=== PATIENT | male | born 1990 | race Caucasian/White ===

== ENCOUNTER → 2020-10-01 12:22 | Outpatient (BNVA) | payer MEDICAID, SELFPAY | PROVIDERS: Family Provider Family Medicine; PCP Family Medicine; Visit Provider Family Medicine | DX: I10 Essential (primary) hypertension (principal); Z03.89 Encounter for observation for other suspected diseases and conditions ruled out; Z79.899 Other long term (current) drug therapy | CPT/HCPCS: 80053; 80061; 82306; 82607; 83036; 84443 ==

== ENCOUNTER → 2021-08-26 12:36 | Outpatient (BNVA) | payer MEDICAID, SELFPAY | PROVIDERS: Family Provider Family Medicine; PCP Family Medicine; Visit Provider Registered Nurse | DX: Z79.899 Other long term (current) drug therapy (principal) | CPT/HCPCS: 80053; 80061; 82306; 82607; 83036; 84443 ==

== ENCOUNTER → 2022-08-23 13:04 | Outpatient (BNVA) | payer MEDICAID, SELFPAY | PROVIDERS: Family Provider Family Medicine; PCP Family Medicine; Visit Provider Family Medicine | DX: E55.9 Vitamin D deficiency, unspecified (principal); R53.83 Other fatigue; E53.8 Deficiency of other specified B group vitamins; I10 Essential (primary) hypertension | CPT/HCPCS: 80053; 80061; 82607; 82652 ==

== ENCOUNTER → 2022-09-30 09:22 | Outpatient (BNVA) | payer MEDICAID, SELFPAY | PROVIDERS: Family Provider Family Medicine; PCP Family Medicine; Visit Provider Family Medicine | DX: N17.9 Acute kidney failure, unspecified (principal); I10 Essential (primary) hypertension | CPT/HCPCS: 80048 ==

== ENCOUNTER → 2023-03-08 09:04 | Outpatient (BNVA) | payer MEDICAID, SELFPAY | PROVIDERS: Family Provider Family Medicine; PCP Family Medicine; Visit Provider Family Medicine | DX: I10 Essential (primary) hypertension (principal); E55.9 Vitamin D deficiency, unspecified; E53.8 Deficiency of other specified B group vitamins; E78.5 Hyperlipidemia, unspecified; Z68.43 Body mass index [BMI] 50.0-59.9, adult; E78.2 Mixed hyperlipidemia; G62.9 Polyneuropathy, unspecified; F41.0 Panic disorder [episodic paroxysmal anxiety] | CPT/HCPCS: 80048; 80061; 82607; 82652 ==

== ENCOUNTER → 2024-03-29 14:29 | Outpatient (BNVA) | payer OTHER, SELFPAY | PROVIDERS: Family Provider Family Medicine; PCP Family Medicine; Visit Provider Psychiatry & Neurology Psychiatry | DX: Z79.899 Other long term (current) drug therapy (principal) | CPT/HCPCS: 80053; 80061; 83036; 84443; 85025 ==

== ENCOUNTER 2024-06-14 08:54 | Outpatient (CLI) | payer MEDICAID, SELFPAY ==
[2024-04-05 16:39] VITALS: BP 148/96; BMI 52.2
--- NOTE | 2024-06-14 08:45 | US_ITS ---
WS: [id number] Complete ABDOMINAL ULTRASOUND HISTORY: R10.11 - Right upper quadrant pain COMPARISON: None available. Liver: 18.7 cm in length. Moderately enlarged liver with coarse echotexture. No mass identified but t he entire liver is not well visualized. Portal Vein: Normal hepatopetal flow with monophasic waveform. Gallbladder: Normally distended. There is a large amount of shadowing near the neck of the gallbladde r consistent with stones. No pericholecystic fluid. CBD: 0.4 cm Pancreas: Obscured completely. Right kidney: 10.4 cm x 5.7 x 6.6 cm. Cortex:1.4 cm. Cyst with through transmission mid kidney measures 2.5 x 3.1 x 2.8 cm. No solid mass or hydronephrosi s. Left kidney: 10.7 cm x 4.7 cm x 6.4 cm. Cortex: 1.4 cm. Normal size and echogenicity. No hydronephrosis or mass. Spleen: 12.3 cm. Normal size and echogenicity. Aorta and IVC: Unremarkable abdominal aorta and IVC. US/US abdomen complete* [id number] Impression: 1. Cholelithiasis without evidence for acute cholecystitis. 2. Poorly visualized liver due to body habitus. Liver is moderately enlarged. No mass identified. Suspect hepatic steatosis. 3. Obscured pancreas. 4. Simple cyst mid RIGHT kidney, 2.5 x 3.1 x 2.8 cm.
--- NOTE | 2024-06-14 09:54 | XR_ITS ---
WS: [id number] XR knee LT 3V* [id number] REASON FOR EXAM: M25.562 - Pain in left knee FINDINGS: No fracture or focal bone lesion. Joint effusion. Mild to moderate narrowing of the medial knee joint space with moderate subchondral sclerosis and sig nificant osteophytosis. Mild medial shift of the femur. Mild narrowing of the lateral knee joint space with mild subchondral sclerosis and moderate osteophyt osis. Moderate narrowing of the patellofemoral joint space with moderate subchondral sclerosis and marginal osteophytosis. XR/XR knee LT 3V* [id number] IMPRESSION: Moderate to significant osteoarthritis of the left knee as above.
--- NOTE | 2024-06-14 09:54 | XR_ITS ---
WS: [email or web address] XR knee RT 3V* [id number] REASON FOR EXAM: M25.561 - Pain in right knee FINDINGS: No fracture or focal bone lesion. Patellofemoral and lateral joint space are intact and well preserved. Minimal narrowing of the medial knee joint space. Mild subchondral sclerosis in the medial knee joint space. XR/XR knee RT 3V* [id number] IMPRESSION: Minimal osteoarthritis as above.
== END 2024-06-14 08:55 | disposition home or self-care (01) ==
LOC: RAD 08:55
PROVIDERS: Family Provider Family Medicine; PCP Family Medicine; Visit Provider Family Medicine
DX: M17.12 Unilateral primary osteoarthritis, left knee (principal); M25.762 Osteophyte, left knee; K80.20 Calculus of gallbladder without cholecystitis without obstruction; R16.0 Hepatomegaly, not elsewhere classified; N28.1 Cyst of kidney, acquired; M25.561 Pain in right knee
CPT/HCPCS: 73562; 76700

== ENCOUNTER → 2024-07-02 14:03 | Outpatient (BNVA) | payer MEDICAID, SELFPAY ==
[2024-04-05 16:39] VITALS: BP 148/96; BMI 52.2
== END ==
PROVIDERS: Family Provider Family Medicine; PCP Family Medicine; Visit Provider Surgery
DX: K80.20 Calculus of gallbladder without cholecystitis without obstruction (principal)
CPT/HCPCS: 99204

== ENCOUNTER 2024-08-07 05:43 | Day surgery (SDC) | payer MEDICAID, SELFPAY ==
[2024-04-05 16:39] VITALS: BP 148/96; BMI 52.2
[2024-08-07] VITALS (10 sets, daily range): BP systolic 94–163; BP diastolic 50–75; PULSE 75–83; RESP 18; TEMP 36.2–36.7; O2SAT 92–98; BMI 51.5
[2024-08-07] MEDS: scopolamine 1 mg PATCH 1 PATCH TRANSDERMA (06:22)
[2024-08-07] MEDS: sodium chloride 0.9% 1,000 ML 30 ML IV (06:23)
--- NOTE | 2024-08-07 06:37 | ANES.PREANE2 ---
Pre-Anesthetic Assessment Height/Weight: Height 1.8 m Weight 167.829 kg Temp Pulse Resp BP Pulse Ox O2 Del Method 98.1 F 75 18 163/61 97 Room Air 08/07/24 06:08 08/07/24 06:08 08/07/24 06:08 08/07/24 06:22 08/07/24 06:08 08/07/24 06:09 Operation Date: 08/07/24 07:00 Proposed Procedures p Laparoscopic Cholecystectomy 37293, K80.20(Not Applicable) - Onur Monae DO Familial anesthetic complications: None Was Beta Romeo taken within 24 hours: N/A Was Clonidine taken within 24 hours: N/A Last intake: Intake Last Liquid Date 08/06/24 Last Liquid Time 21:00 Last Solid Date 08/06/24 Last Solid Time 20:00 Social Tobacco and No alcohol Exam alert, oriented x 3, clear to auscultation bilaterally and regular rate & rhythm Airway Mallampati: Class IV CV/HEM Hypertension GI Gastroesophageal Reflux Disease Metabolic Morbid Obesity Anesthetic Plan ASA status: 3 Anesthesia: General Risk of > 500 ml blood loss (7ml/kg in children): No Medications/Allergies Home Medications Medication Instructions Recorded Confirmed Last Taken Type ibuprofen 200 mg tablet 200 mg PO DAILY PRN Pain 07/12/19 08/06/24 Unknown History mecobalamin (vitamin B12) 5,000 5,000 mcg PO DAILY 90 days #90 tabs 03/08/23 08/06/24 Unknown Rx mcg disintegrating tablet cholecalciferol (vitamin D3) 1,250 1,250 mcg PO .weekly 90 days #13 06/16/23 08/06/24 08/01/24 Rx mcg (50,000 unit) capsule caps atorvastatin 10 mg tablet 10 mg PO .at bedtime 90 days #90 12/15/23 08/06/24 08/06/24 Rx tabs amlodipine 10 mg tablet 10 mg PO DAILY 90 days #90 tabs 05/30/24 08/06/24 08/07/24 Rx lisinopril 20 2 tab PO DAILY 90 days #180 tabs 05/30/24 08/06/24 08/06/24 Rx mg-hydrochlorothiazide 12.5 mg tablet metronidazole 0.75 % topical cream 1 applic topical DAILY #45 grams 06/19/24 08/06/24 08/04/24 Rx pantoprazole 40 mg tablet,delayed 40 mg PO DAILY 90 days #90 tabs 06/19/24 08/06/24 08/05/24 Rx release clonazepam 1 mg tablet 1 mg PO TID PRN anxiety 30 days 06/29/24 08/06/24 08/07/24 Rx #80 tabs desvenlafaxine succinate 100 mg 100 mg PO DAILY #30 caps 06/29/24 08/06/24 08/06/24 Rx tablet,extended release 24 hr cariprazine 6 mg capsule (Vraylar) 6 mg PO DAILY 08/06/24 08/06/24 08/06/24 History furosemide 20 mg tablet 20 mg PO PRN PRN Edema 08/06/24 08/06/24 08/06/24 History propranolol 40 mg tablet 40 mg PO TID 08/06/24 08/06/24 08/07/24 History Allergies Allergy/AdvReac Type Severity Reaction Status Date / Time No Known Allergies Allergy Verified 07/02/24 14:40 Current Medications Generic Name Dose Route Start Last Admin Trade Name Freq PRN Reason Stop Dose Admin Sodium Chloride 1,000 mls @ 30 mls/hr 08/07/24 06:00 08/07/24 06:23 Sodium Chloride 0.9% IV 08/08/24 05:59 30 mls/hr .Q24H HAWA Administration PFSH Anesthesia Medical History Borderline personality disorder Chronic use of benzodiazepine for therapeutic purpose Psychiatric care Hypertension Chronic pain of right lower extremity Superficial vein thrombosis Morbid obesity Allergic rhinitis Tobacco abuse Surgical History H/O tympanostomy Hx of tonsillectomy History of skin graft Left Arm Family History Family/Other CAD (coronary artery disease) Uncle Mother Anxiety disorder Social History Smoking and tobacco/nicotine status: current every day tobacco/nicotine user (Cigars and marijuana) cigars Cigar details: smokes one occassionally Substance/Drug Use: current Substance/Drug use frequency: daily Current gender identity: Male Data Anesthesia Cardiac Studies: No Data to Display
--- NOTE | 2024-08-07 06:57 | PM.HP ---
Providers/Chief Complaint Primary Care Provider: Lenora Adan MD Chief Complaint: K80.20 History of Present Illness Tom Armenta is a 33 year old male Review of Systems General: Reports: 10 or more systems reviewed and unremarkable except in HPI and below Medications/Allergies Home Medications Medication Instructions Recorded Confirmed Last Taken Type ibuprofen 200 mg tablet 200 mg PO DAILY PRN Pain 07/12/19 08/06/24 Unknown History mecobalamin (vitamin B12) 5,000 5,000 mcg PO DAILY 90 days #90 tabs 03/08/23 08/06/24 Unknown Rx mcg disintegrating tablet cholecalciferol (vitamin D3) 1,250 1,250 mcg PO .weekly 90 days #13 06/16/23 08/06/24 08/01/24 Rx mcg (50,000 unit) capsule caps atorvastatin 10 mg tablet 10 mg PO .at bedtime 90 days #90 12/15/23 08/06/24 08/06/24 Rx tabs amlodipine 10 mg tablet 10 mg PO DAILY 90 days #90 tabs 05/30/24 08/06/24 08/07/24 Rx lisinopril 20 2 tab PO DAILY 90 days #180 tabs 05/30/24 08/06/24 08/06/24 Rx mg-hydrochlorothiazide 12.5 mg tablet metronidazole 0.75 % topical cream 1 applic topical DAILY #45 grams 06/19/24 08/06/24 08/04/24 Rx pantoprazole 40 mg tablet,delayed 40 mg PO DAILY 90 days #90 tabs 06/19/24 08/06/24 08/05/24 Rx release clonazepam 1 mg tablet 1 mg PO TID PRN anxiety 30 days 06/29/24 08/06/24 08/07/24 Rx #80 tabs desvenlafaxine succinate 100 mg 100 mg PO DAILY #30 caps 06/29/24 08/06/24 08/06/24 Rx tablet,extended release 24 hr cariprazine 6 mg capsule (Vraylar) 6 mg PO DAILY 08/06/24 08/06/24 08/06/24 History furosemide 20 mg tablet 20 mg PO PRN PRN Edema 08/06/24 08/06/24 08/06/24 History propranolol 40 mg tablet 40 mg PO TID 08/06/24 08/06/24 08/07/24 History Allergies Allergy/AdvReac Type Severity Reaction Status Date / Time No Known Allergies Allergy Verified 07/02/24 14:40 PFSH Acute PFSH: Medical History Borderline personality disorder Chronic use of benzodiazepine for therapeutic purpose Psychiatric care Hypertension Chronic pain of right lower extremity Superficial vein thrombosis Morbid obesity Allergic rhinitis Tobacco abuse Surgical History H/O tympanostomy Hx of tonsillectomy History of skin graft Left Arm Family History Family/Other CAD (coronary artery disease) Uncle Mother Anxiety disorder Social History Smoking and tobacco/nicotine status: current every day tobacco/nicotine user (Cigars and marijuana) cigars Cigar details: smokes one occassionally Substance/Drug Use: current Substance/Drug use frequency: daily Current gender identity: Male Vitals/I&O/Wt Last Vital Signs Temp 98.1 F 08/07/24 06:08 Pulse 75 08/07/24 06:08 Resp 18 08/07/24 06:08 BP 163/61 08/07/24 06:22 Pulse Ox 97 08/07/24 06:08 O2 Del Method Room Air 08/07/24 06:09 Weight last 48 hrs Weight 370 lb A&P Assessment and plan (1) Symptomatic cholelithiasis: Plan Laparoscopic cholecystectomy Patient has requested a liver biopsy. If liver looks irregular, I will perform a wedge liver biopsy which carries the same risks as cholecystectomy including bile leak and bleeding along with infection Attestations Medical Necessity Statement*: Home Coding Level of Care Code Acute Code for Chg Fwd Diagnoses Symptomatic cholelithiasis K80.20
[2024-08-07] MEDS: ceFAZolin 3,000 MG in sodium chloride 0.9% (plus) 100 ML 200 MG IV (07:05)
[2024-08-07] MEDS: lidocaine-epi 2% PF 1:200,000 20 mL SDV XX (07:26)
--- NOTE | 2024-08-07 07:57 | P.OP_ITS ---
Operative Report Date of procedure: August 07, 2024 Surgeon: Onur Mnoae DO Brief History: This is a very pleasant 33-year-old gentleman who presented my office with abdominal pain. He was diagnosed with symptomatic cholelithiasis. Laparoscopic cholecystectomy was indicated. The risks and benefits were explained and documented. Procedure: Preoperative diagnosis: Symptomatic cholelithiasis Postoperative diagnosis: Same Procedure performed: Laparoscopic cholecystectomy Surgeon: Dr. Onur Monae DO Estimated blood loss: 5 mL Specimens: Gallbladder to pathology Complications: None apparent Description of procedure: Patient was wheeled into the operative room and placed on the OR table in a supine position. Abdomen was inspected prepped and draped in usual sterile fashion. Time-out was performed and all present were in agreement. A 15 blade scalp was used to make a stab incision in the left upper quadrant and intra- abdominal insufflation was achieved using a Veress needle. After localizing the tissue incisions were made and a 5 millimeter trocar was placed into the umbilicus as well as 2 in the right upper quadrant. A 12 millimeter trocar was placed in the epigastrium. Gallbladder was grasped and elevated. The triangle of Calot was carefully dissected using blunt dissection and electrocautery until the triangle of Calot clearly identified. The cystic duct was clipped proximally and double clipped distally. The duct was then ligated proximally. The cystic artery was doubly clipped and ligated. The gallbladder was then removed from the liver bed using electrocautery. The gallbladder was removed from the abdomen using an Endo-Catch bag through the epigastric incision. Due to a large stone, the epigastric incision had to be extended. The liver bed was inspected and no bleeding was seen. The abdomen was irrigated and suctioned. All ports removed. Skin was washed and dried. Incisions were closed with 4-0 Monocryl in a subcuticular interrupted fashion. Skin glue was applied. Patient tolerated the procedure well.
[2024-08-07] MEDS: fentaNYL 50 mcg/mL INJ 2mL IVP (08:20)
[2024-08-07] MEDS: HYDROcodone-acetaminophen 7.5-325 mg Tablet 1 TAB PO (09:07)
--- NOTE | 2024-08-07 09:20 | ANE.PACU2 ---
Inpatient post-anesthesia follow up: Airway intact: Yes Vital signs: Temperature 97.2 F Pulse Rate 76 Respiratory Rate 18 Blood Pressure 116/62 Pulse Oximetry 94 Oxygen Delivery Me thod Room Air Oxygen Flow Rate 10 Fraction of Inspir ed Oxygen Hydration adequate: Yes Nausea and vomiting: No Pain level: 1 Mental status: Baseline
== END 2024-08-07 09:29 | disposition home or self-care (01) ==
PROVIDERS: PCP Family Medicine; Visit Provider Surgery
PROC: 0FT44ZZ Resection of Gallbladder, Percutaneous Endoscopic Approach (ICD-10-PCS; CPT 47562; principal; 2024-08-07 07:00)
DX: K80.10 Calculus of gallbladder with chronic cholecystitis without obstruction (principal); I10 Essential (primary) hypertension; E66.01 Morbid (severe) obesity due to excess calories; F17.290 Nicotine dependence, other tobacco product, uncomplicated; Z79.899 Other long term (current) drug therapy
CPT/HCPCS: 47562; 88304; A4216; J0690; J2250; J2371; J2704; J3010; J7030

== ENCOUNTER → 2024-08-20 08:26 | Outpatient (BNVA) | payer MEDICAID, SELFPAY ==
[2024-04-05 16:39] VITALS: BP 148/96; BMI 52.2
== END ==
PROVIDERS: PCP Family Medicine; Visit Provider Surgery
DX: Z98.890 Other specified postprocedural states (principal); Z90.49 Acquired absence of other specified parts of digestive tract
CPT/HCPCS: 99024

== ENCOUNTER → 2024-11-21 09:40 | Outpatient (BNVA) | payer MEDICAID, SELFPAY ==
[2024-04-05 16:39] VITALS: BP 148/96; BMI 52.2
== END ==
PROVIDERS: Family Provider Family Medicine; PCP Family Medicine; Visit Provider Family Medicine
DX: I10 Essential (primary) hypertension (principal); Z13.1 Encounter for screening for diabetes mellitus; R73.9 Hyperglycemia, unspecified
CPT/HCPCS: 80053; 83036

== ENCOUNTER 2025-01-08 08:30 | Outpatient (CLI) | payer MEDICAID, SELFPAY ==
[2024-04-05 16:39] VITALS: BP 148/96; BMI 52.2
--- NOTE | 2025-01-08 09:30 | MR_ITS ---
WS: [id number] MRI LEFT KNEE HISTORY: M25.562 - Pain in left knee COMPARISON: Radiographs 06/14/2024 Anterior cruciate ligament: Mild mucoid degeneration in the ACL. No full- thickness tear. Posterior cruciate ligament: Intact. Medial collateral ligament: MCL is being displaced from the joint line by large marginal osteophytes and fluid. Fluid surrounding the deep portion of the MCL. Posterior lateral corner structures: Intact. Medial menisci: Anterior horn is extruded from the joint space. Posterior horn small caliber. Slight truncation of the posterior superior meniscal surface. Lateral meniscus: Truncated free edge of the posterior horn. Fraying along the surfaces of the meniscus. Extensor mechanism: Distal quadriceps tendon and patellar tendons are intact. Fluid and soft tissue: Small suprapatellar joint effusion. Intra-articular bodies noted within the joint effusion. Diffuse soft tissue edema surrounding the knee. No Urena's cyst. Osseous and articular structures: Patellofemoral compartment: Lateral subluxation of the patella. Loss of cartilage over the patellar eminence. Thinning of the cartilage over the medial and lateral facets. Moderate narrowing of the lateral patella femoral articulation. Small amount of marrow edema at the patellar eminence. Medial compartment: Marked narrowing the medial compartment with loss of cartilage. Small amount of edema with large marginal osteophytes. Lateral compartment: Marked narrowing with diffuse chondromalacia involving the cartilage of the femoral condyle and tibial plateau. No marrow edema or fracture. MR/MR knee LT wo con* [id number] IMPRESSION: 1. Severe tricompartment osteoarthritis with joint space narrowing, loss of ca rtilage and scattered marrow edema. 2. Partial lateral subluxation of the patella with loss of cartilage at the pa tellar eminence. 3. Moderate size joint effusion with intra-articular bodies. 4. Diffuse soft tissue edema. 5. Mild mucoid degeneration of the ACL. 6. MCL is being displaced from the joint line by large osteophytes. 7. Extruded anterior horn medial meniscus and small caliber posterior horn. 8. Mild truncated free edge posterior horn lateral meniscus.
== END 2025-01-08 08:31 | disposition home or self-care (01) ==
LOC: RAD 08:31
PROVIDERS: PCP Family Medicine; Visit Provider Family Medicine
DX: M17.12 Unilateral primary osteoarthritis, left knee (principal); R93.6 Abnormal findings on diagnostic imaging of limbs; S83.012A Lateral subluxation of left patella, initial encounter; X58.XXXA Exposure to other specified factors, initial encounter; M25.462 Effusion, left knee; M25.762 Osteophyte, left knee; M94.262 Chondromalacia, left knee
CPT/HCPCS: 73721

== ENCOUNTER → 2025-01-15 07:46 | Outpatient (BNVA) | payer MEDICAID, SELFPAY ==
[2024-04-05 16:39] VITALS: BP 148/96; BMI 52.2
== END ==
PROVIDERS: PCP Family Medicine; Visit Provider Orthopaedic Surgery
DX: M17.12 Unilateral primary osteoarthritis, left knee (principal)
CPT/HCPCS: 20610; 99204; J3301; J3490; J9999

== ENCOUNTER → 2025-05-07 08:49 | Outpatient (BNVA) | payer MEDICAID, SELFPAY ==
[2024-04-05 16:39] VITALS: BP 148/96; BMI 52.2
== END ==
PROVIDERS: Family Provider Family Medicine; PCP Family Medicine; Referring Provider Family Medicine; Visit Provider Dermatology
DX: L25.9 Unspecified contact dermatitis, unspecified cause (principal); D22.39 Melanocytic nevi of other parts of face
CPT/HCPCS: 99204

== ENCOUNTER → 2025-05-30 09:27 | Outpatient (BNVA) | payer MEDICAID, SELFPAY ==
[2024-04-05 16:39] VITALS: BP 148/96; BMI 52.2
== END ==
PROVIDERS: Family Provider Family Medicine; PCP Family Medicine; Visit Provider Family Medicine
DX: E78.2 Mixed hyperlipidemia (principal); I10 Essential (primary) hypertension
CPT/HCPCS: 80048; 80061